=== PATIENT | female | born 1980 ===

== ENCOUNTER → 2023-09-11 08:58 | Outpatient (CLI) | payer OTHER ==
[2023-09-11 09:47] LABS: HEMATOCRIT 38.6 % (36.0-45.00); HEMOGLOBIN 13.2 g/dL (12.0-15.00); MEAN CELL VOLUME 94.6 fL (80.00-100.00); MEAN CORPUSCULAR HEMOGLOBIN 32.3 pg (27.00-32.0); MEAN CORPUSCULAR HGB CONC 34.2 g/dl (32.0-36.0); PLATELET COUNT 202 K/uL (150-450); RED BLOOD COUNT 4.08 M/uL (4.00-6.00); RED CELL DISTRIBUTION WIDTH 13.3 % (11.5-14.5)
[2023-09-11 09:48] LABS: PH,URINE 7.5 (5.0-8.0); URINE APPEARANCE Clear; URINE BILIRRUBIN Negative (NEGATIVE); URINE BLOOD Negative; URINE COLOR Yellow; URINE GLUCOSE Negative (NEGATIVE); URINE LEUKOCYTE Negative; URINE NITRATE Negative; URINE PROTEIN Negative (NEGATIVE); URINE UROBILINOGEN 0.2 E.U./dl
[2023-09-11 09:51] LABS: URINE BACTERIA 12.5 uL (0.0-1933)
[2023-09-11 09:59] LABS: URINE EPITHELIAL CELLS 1.3 uL (0.0-38.8); URINE RBC 1.1 uL (0.0-20.8); URINE WBC 0.3 uL (0.0-23.2)
[2023-09-12 12:08] LABS: PROLACTIN 5.7 ng/mL (4.8-33.4)
[2023-09-12 22:10] LABS: chla t Negative (Negative); neiss Negative (Negative)
== END | disposition home or self-care (01) ==
LOC: LAB 08:58
DX: R63.8 Other symptoms and signs concerning food and fluid intake (principal); R10.2 Pelvic and perineal pain; O92.6 Galactorrhea

== ENCOUNTER 2024-11-20 07:01 | Outpatient (CLI) | payer OTHER ==
[2024-11-20 07:57] LABS: HEMATOCRIT 39.6 % (36.0-45.00); HEMOGLOBIN 13.3 g/dL (12.0-15.00); MEAN CELL VOLUME 92.3 fL (80.00-100.00); MEAN CORPUSCULAR HEMOGLOBIN 30.9 pg (27.00-32.0); MEAN CORPUSCULAR HGB CONC 33.5 g/dl (32.0-36.0); PLATELET COUNT 200 K/uL (150-450); RED BLOOD COUNT 4.29 M/uL (4.00-6.00); RED CELL DISTRIBUTION WIDTH 13.4 % (11.5-14.5)
[2024-11-20 08:17] LABS: PH,URINE 5.5 (5.0-8.0); URINE APPEARANCE Clear; URINE BILIRRUBIN Negative (NEGATIVE); URINE BLOOD Negative; URINE COLOR Yellow; URINE GLUCOSE Negative (NEGATIVE); URINE KETONE Negative (NEGATIVE); URINE LEUKOCYTE Negative; URINE NITRATE Negative; URINE PROTEIN Negative (NEGATIVE); URINE UROBILINOGEN 0.2 E.U./dl
[2024-11-20 08:21] LABS: URINE EPITHELIAL CELLS 1.8 uL (0.0-38.8)
[2024-11-20 08:30] LABS: URINE BACTERIA 0 uL (0.0-1933); URINE RBC 1.7 uL (0.0-20.8); URINE WBC 0.6 uL (0.0-23.2)
[2024-11-20 08:37] LABS: ALBUMIN 3.6 gm/dL (3.4-5.0); BILIRUBIN TOTAL 0.36 mg/dL (0.3-1.2); CHOL HDL RATIO 4.2 (0-5.0); CREATININE SERUM 0.53 mg/dL (0.55-1.02); GFR 125.32; GLOBULINA 2.6 G/DL (2.4-3.5); POTASSIUM 4.3 mEq/L (3.5-5.1); T4 FREE 0.9 NG/ML (0.76-1.46); TOTAL PROTEIN 6.2 gm/dL (6.4-8.2); TSH 1.87 uIU/mL (0.358-3.74)
[2024-11-21 09:20] LABS: hav igm Negative (Negative); hcv Non Reactive (Non Reactive); hep b c Negative (Negative); hep b s ag Negative (Negative)
[2024-11-22 07:08] LABS: chla t Negative (Negative); neiss Negative (Negative)
== END 2024-11-20 07:06 | disposition home or self-care (01) ==
LOC: LAB 07:01
DX: D64.9 Anemia, unspecified (principal); E78.5 Hyperlipidemia, unspecified; N39.0 Urinary tract infection, site not specified; E03.9 Hypothyroidism, unspecified; E55.9 Vitamin D deficiency, unspecified; C18.9 Malignant neoplasm of colon, unspecified; A64 Unspecified sexually transmitted disease; E11.9 Type 2 diabetes mellitus without complications

== ENCOUNTER 2024-11-21 09:48 | Outpatient (CLI) | payer OTHER ==
[2024-11-21 17:26] LABS: ob NEGATIVE (NEGATIVE)
== END 2024-11-21 09:49 | disposition home or self-care (01) ==
LOC: LAB 09:48
DX: D64.9 Anemia, unspecified (principal); E78.5 Hyperlipidemia, unspecified; N39.0 Urinary tract infection, site not specified; E03.9 Hypothyroidism, unspecified; E55.9 Vitamin D deficiency, unspecified; C18.9 Malignant neoplasm of colon, unspecified; A64 Unspecified sexually transmitted disease; E11.9 Type 2 diabetes mellitus without complications

== ENCOUNTER 2024-11-30 08:30 | Outpatient (CLI) | payer OTHER | END 2024-11-30 08:34 | disposition home or self-care (01) | LOC: MAMO-SONO 08:30 | DX: Z12.31 Encounter for screening mammogram for malignant neoplasm of breast (principal) ==

== ENCOUNTER → 2025-04-17 08:46 | Outpatient (CLI) | payer OTHER | END | disposition home or self-care (01) | LOC: LAB 08:46 | DX: R76.11 Nonspecific reaction to tuberculin skin test without active tuberculosis (principal); B20 Human immunodeficiency virus [HIV] disease ==

== ENCOUNTER 2025-04-17 09:46 | Outpatient (CLI) | payer OTHER | END 2025-04-17 09:49 | disposition home or self-care (01) | LOC: RAD 09:46 | DX: R76.11 Nonspecific reaction to tuberculin skin test without active tuberculosis (principal) ==

== ENCOUNTER 2025-05-29 09:33 | Outpatient (CLI) | payer OTHER ==
[2025-05-29 10:32] LABS: BASO % 0.7 % (0.1-1.2); EOS # 0.36 (0.04-0.54); EOS % 5.0 % (0.7-7.0); LYMPH # 2.03 (1.18-3.74); LYMPH % 28.0 % (19.3-53.1); MEAN PLATELET VOLUME 12.00 fl (9.4-12.4); MONO # 0.58 (0.24-0.82); MONO % 8.0 % (4.7-12.5); NEUT # 4.23 (1.56-6.13); NEUT % 58.2 % (34.0-71.1); RED CELL DISTRIBUTION WIDTH 13.2 % (11.6-14.4)
[2025-05-29 10:34] LABS: URINE APPEARANCE Clear; URINE BILIRRUBIN Negative (NEGATIVE); URINE BLOOD Negative; URINE COLOR Yellow; URINE GLUCOSE Negative (NEGATIVE); URINE KETONE Negative (NEGATIVE); URINE LEUKOCYTE Negative; URINE NITRATE Negative; URINE PROTEIN Negative (NEGATIVE); URINE UROBILINOGEN 0.2 E.U./dl
[2025-05-29 10:39] LABS: URINE BACTERIA 9.6 uL (0.0-1933); URINE EPITHELIAL CELLS 1.9 uL (0.0-38.8)
[2025-05-29 10:59] LABS: URINE CAST 0.00 uL (0.0-1.40); URINE RBC 1.3 uL (0.0-20.8); URINE WBC 0.7 uL (0.0-23.2)
[2025-05-29 11:17] LABS: BUN CREA RATIO 11.0 (7.0-25.0); CHOL HDL RATIO 4.6 (0-5.0); CREATININE SERUM 0.62 mg/dL (0.55-1.02); GFR 104.57; GLUCOSE FASTING 87.0 mg/dL (65-100); HDL 45.0 mg/dl (40-60); LDL 136.0 mg/dl (0-130); OSMOLALITY SERUM 277.0 MOSM/KG (275-295); VLDL 25.0 (0-39)
== END 2025-05-29 09:40 | disposition home or self-care (01) ==
LOC: LAB 09:33
DX: Z13.0 Encounter for screening for diseases of the blood and blood-forming organs and certain disorders involving the immune mechanism (principal); Z13.220 Encounter for screening for lipoid disorders; Z11.9 Encounter for screening for infectious and parasitic diseases, unspecified; Z13.1 Encounter for screening for diabetes mellitus